=== PATIENT | male | born 1990 | race Caucasian/White ===

== ENCOUNTER 2024-12-03 10:53 | Emergency (ER) | payer OTHER, SELFPAY ==
[2024-12-03 10:54] VITALS: BP 123/94; PULSE 84; RESP 16; TEMP 36.2; O2SAT 97; BMI 25.7
--- NOTE | 2024-12-03 13:20 | ED.VIS.GI ---
HPI HPI - GI History of Present Illness Chief Complaint: Foreign Body Narrative Narrative: 34-year-old male who denies significant past medical history presents with esophageal food impaction that has had since 7 PM last evening, approximately 18 hours ago. While he states that at times he has had difficulty swallowing and dysphagia, usually drinking water will alleviate his symptoms. He has never had upper endoscopy performed. He states that yesterday he was eating and now feels like a piece of food is stuck. He tried to drink water but it came back up. He states that he regurgitated, and felt a little improved so he went to bed, however when he went to drink water this morning, the same thing happened. He went to urgent care initially, and as they sent him here, he states that he was producing more and more saliva that he had to spit out of his car door. He feels uncomfortable in the midsternal area to lower esophagus area. PFSH PFSH Medical History no medical history Allergy/AdvReac Type Severity Reaction Status Date / Time No Known Allergies Allergy Verified 12/03/24 10:54 Social History Smoking Status: Never smoker ROS ROS ED ROS Narrative Review of systems positive for discomfort in the midsternal area, esophageal food impaction/feels food is stuck. No shortness of breath, no difficulty breathing, but is having difficulty swallowing his own saliva. EXAM Physical Exam Narrative Exam Narrative: Afebrile. Vital signs noted. Nontoxic-appearing. Cardiovascular examination regular rate and rhythm lungs clear to auscultation bilaterally abdomen soft and nontender without guarding or rebound, positive bowel sounds. Airway is patent, patient is spitting up his own saliva at the bedside. Const Vital Signs: 12/03/24 10:54 12/03/24 13:43 12/03/24 13:57 Temperature 97.1 F L Temperature Source Temporal Pulse Rate 84 64 Respiratory Rate 16 16 Respiratory Effort Normal Non-Labored Respiratory Pattern Normal Blood Pressure 123/94 H 134/92 H Blood Pressure Mean 103 106 Pulse Ox 97 100 Oxygen Delivery Method Room Air MDM MDM MDM Narrative Medical decision making narrative: Differential diagnosis includes but not limited to esophageal food impaction versus Schatzki's ring versus esophageal web. I do not feel he needs imaging, or EKG because I feel this is noncardiac. IV will be placed and glucagon administered. I did contact Dr. Olivier for endoscopy, however approximately 30 minutes after glucagon, patient was able to pass a bedside swallow of [employer]. He states the initial swallow was somewhat painful, but he felt like it was moving and was able to drink half of the small can, and then later all of it. At this point in time, I do feel he can be discharged to follow-up. He was told he probably needs upper endoscopy for his dysphagia. Return instructions to the emergency department were reviewed. Disposition is discharged home in stable condition. History & Record Review Discussion w/independent historian: Patient Management Discussion w/another healthcare provider: Benefits Counselor (Gastroenterology) Discharge Plan Triage Chief Complaint: Foreign Body ED Provider: Artie Prieto Dx/Rx/DC Orders Clinical Impression: Obstruction of esophagus due to food impaction, Dysphagia Instructions: ED Soft Diet, ED Esophageal Foreign Body, Resolved, ED Dysphagia (Adult) Primary Care Provider: Care Physician,No Primary Referrals: Raleigh Olivier DO [Med Staff - Active Staff] - As soon as possible Care Physician,No Primary [Primary Care Provider] - Print Language: Vietnamese Disposition Disposition: Home, Self Care
[2024-12-03 13:43] VITALS: BP 134/92; PULSE 64; RESP 16; O2SAT 100
[2024-12-03] MEDS: Glucagon 1 MG/ML Syringe IV (14:01)
[2024-12-03 15:07] VITALS: BP 120/74; PULSE 84; RESP 16; TEMP 36.6; O2SAT 100
== END 2024-12-03 15:07 | disposition home or self-care (01) ==
PROVIDERS: Emergency Provider Emergency Medicine; Visit Provider Emergency Medicine
DX: K22.2 Esophageal obstruction (principal); R13.10 Dysphagia, unspecified; T18.128A Food in esophagus causing other injury, initial encounter; W44.F3XA Food entering into or through a natural orifice, initial encounter
CPT/HCPCS: 99283; A4216; J1610